=== PATIENT | male | born 2000 | race Caucasian/White ===

== ENCOUNTER 2018-07-04 05:39 | Emergency (ER) | payer BC ==
[2018-07-04 07:26] LABS: ADD UMIC NO; UR ASCORBIC ACID NEGATIVE (NEGATIVE); UR BILIRUBIN (Dip) NEGATIVE (NEGATIVE); UR BLOOD (Dip) NEGATIVE (NEGATIVE); UR CLARITY CLEAR (CLEAR); UR COLOR YELLOW (YELLOW); UR GLUCOSE (Dip) NEGATIVE (NEGATIVE); UR KETONES (Dip) NEGATIVE (NEGATIVE); UR LEUKOCYTE ESTERASE (Dip) NEGATIVE Leu/ul (NEGATIVE); UR NITRITE (Dip) NEGATIVE (NEGATIVE); UR TOTAL PROTEIN (Dip) NEGATIVE (NEGATIVE); UR UROBILINOGEN (Dip) NEGATIVE (NEGATIVE)
[2018-07-04 08:03] LABS: ADD MAN DIFF? NO
[2018-07-04 08:09] LABS: WHITE BLOOD COUNT 10.8 10^3/ul (4.8-10.8)
[2018-07-04 08:09] LABS: BASOPHILS % 0.4 % (0.0-2.0); EOSINOPHILS # 0.1 10^3/ul (0.0-0.5); EOSINOPHILS % 0.6 % (0.0-7.0); HEMATOCRIT 48.8 % (42.0-52.0); HEMOGLOBIN 16.2 g/dl (14.0-18.0); LYMPHOCYTES # 2.5 10^3/ul (0.8-2.9); LYMPHOCYTES % 22.9 % (18.0-55.0); MEAN CORPUSCULAR HEMOGLOBIN 28.6 pg (29.0-33.0); MEAN CORPUSCULAR HGB CONC 33.2 g/dl (32.0-37.0); MEAN CORPUSCULAR VOLUME 86.2 fl (72.0-104.0); MEAN PLATELET VOLUME 9.8 fl (7.4-10.4); MONOCYTE # 0.6 10^3/ul (0.3-0.9); MONOCYTES % 5.7 % (0.0-13.0); NEUTROPHIL # 7.6 10^3/ul (1.6-7.5); NEUTROPHILS % 70.1 % (30.0-74.0); PLATELET COUNT 302 10^3/UL (140-415); RED BLOOD COUNT 5.66 10^6/ul (4.70-6.10); RED CELL DISTRIBUTION WIDTH 13.7 % (11.5-14.5)
[2018-07-04 08:26] LABS: ALANINE AMINOTRANSFERASE 26 IU/L (13-69); ALBUMIN 5.1 g/dl (3.3-4.9); ALKALINE PHOSPHATASE 89 IU/L (42-121); ANION GAP 12 (5-13); ASPARTATE AMINO TRANSFERASE 28 IU/L (15-46); BILIRUBIN,INDIRECT 0.3 mg/dl (0-1.1); BILIRUBIN,TOTAL 0.3 mg/dl (0.2-1.3); BLOOD UREA NITROGEN 11 mg/dl (7-20); CALCIUM 10.1 mg/dl (8.4-10.2); CARBON DIOXIDE 27 mmol/L (21-31); CHLORIDE 99 mmol/L (97-110); CREATININE 0.92 mg/dl (0.61-1.24); Estimated GFR > 60 mL/min (>60); GLUCOSE 111 mg/dl (70-220); SODIUM 138 mmol/L (135-144)
[2018-07-04 08:55] LABS: D-DIMER 255.66 ng/ml (<460)
== END 2018-07-04 09:12 | disposition home or self-care (01) ==
LOC: FTE 05:39
DX: R06.02 Shortness of breath (principal)
CPT/HCPCS: 71045; 80053; 81003; 85025; 85378; 93005; 99285-25

== ENCOUNTER 2018-07-05 17:05 | Emergency (ER) | payer BC ==
[2018-07-05 19:35] LABS: TROPONIN-I < 0.012 ng/ml (0.000-0.120)
== END 2018-07-05 20:05 | disposition home or self-care (01) ==
LOC: FTE 17:05
DX: R00.2 Palpitations (principal)
CPT/HCPCS: 82962; 84484; 85378; 93005; 99284-25

== ENCOUNTER 2018-08-06 13:05 | Emergency (ER) | payer BC ==
[2018-08-06] MEDS: LORAZEPAM 0.5 MG TAB PO (16:59)
== END 2018-08-06 17:52 | disposition home or self-care (01) ==
LOC: FTE 17:52
DX: R20.0 Anesthesia of skin (principal)
CPT/HCPCS: 99283